=== PATIENT | male | born 1990 | race Caucasian/White ===

== ENCOUNTER 2017-05-13 20:03 | Emergency (ER) | payer OTHER ==
[~2017-05-13] VITALS: Ht 190.5 cm; Wt 77.1 kg
[~2017-05-13 20:03] MED LIST: TRAMADOL HCL50 MG PO
== END 2017-05-13 20:20 | disposition home or self-care (01) ==
LOC: ED 20:03
DX: L55.9 Sunburn, unspecified (principal); R03.0 Elevated blood-pressure reading, without diagnosis of hypertension; F17.200 Nicotine dependence, unspecified, uncomplicated

== ENCOUNTER 2018-03-29 23:17 | Emergency (ER) | payer OTHER ==
[~2018-03-29] VITALS: Ht 187.9 cm; Wt 81.6 kg
[2018-03-29 23:38] LABS: HEMATOCRIT 40.7 % (42.0-52.0); HEMOGLOBIN 13.8 g/dl (14.0-18.0); MEAN CELL VOLUME 94.2 fl (80.0-94.0); MEAN CORPUSCULAR HGB 31.9 pg (27.0-31.0); MEAN CORPUSCULAR HGB CONC 33.9 g/dl (33.0-37.0); PLATELET COUNT AUTOMATED 288 10*3/uL (130-400); RED BLOOD COUNT 4.32 10*6/uL (4.50-5.90); WHITE BLOOD COUNT 10.7 10*3/uL (4.8-10.8)
[2018-03-29 23:55] LABS: ALBUMIN 4.3 gm/dl (3.1-4.5); ALKALINE PHOSPHATASE 75 U/L (45-117); BUN 12 mg/dl (7-24); CHLORIDE 106 mmol/L (98-107); CREATININE 1.02 mg/dL (0.70-1.30); POTASSIUM 3.1 mmol/L (3.5-5.1); SGOT/AST 12 IU/L (3-35); SGPT/ALT 15 U/L (12-78); SODIUM 141 mmol/L (136-145); TOTAL PROTEIN 7.5 gm/dL (6.4-8.2)
[2018-03-29 23:56] LABS: TROPONIN I < 0.015 ng/ml (<0.045)
[2018-03-29 23:59] LABS: BASOPHILS 1 % (0-1); PLATELET SUFFICIENCY NORMAL (NORMAL); TOTAL CELLS COUNTED 100 #CELLS
[2018-03-30 00:31] LABS: URINE AMPHETAMINES < 1000 (1000ng/ml); URINE BARBITURATES < 200 (200ng/ml); URINE BENZODIAZEPINES < 200 (200ng/ml); URINE CANNABINOIDS (THC) > 50 (50ng/ml); URINE COCAINE < 300 (300ng/ml); URINE METHADONE < 300 (300ng/ml); URINE OPIATES < 300 (300ng/ml)
[2018-03-30 00:34] LABS: URINE PHENCYCLIDINE < 25 (25ng/ml)
[2018-03-30] MEDS ORDERED: K-TAB20 MEQ PO (00:53)
== END 2018-03-30 01:02 | disposition home or self-care (01) ==
LOC: ED 23:17
PROVIDERS: Physician Assistant
DX: R07.89 Other chest pain (principal); T43.615A Adverse effect of caffeine, initial encounter; F12.10 Cannabis abuse, uncomplicated; R25.1 Tremor, unspecified; Y92.9 Unspecified place or not applicable

== ENCOUNTER 2019-05-04 01:07 | Emergency (ER) | payer SELFPAY ==
[~2019-05-04] VITALS: Ht 190.5 cm; Wt 77.1 kg
[~2019-05-04 01:07] MED LIST changes: +ANTIBIOTIC28.4 GM T; +AUGMENTIN 875-875 MG PO; +K-TAB20 MEQ PO
[2019-05-04] MEDS ORDERED: CLINDAMYCIN HC300 MG PO (01:36)
== END 2019-05-04 01:56 | disposition home or self-care (01) ==
LOC: ED 01:07
DX: L01.00 Impetigo, unspecified (principal); R59.0 Localized enlarged lymph nodes; F17.200 Nicotine dependence, unspecified, uncomplicated; Z79.899 Other long term (current) drug therapy; Z79.2 Long term (current) use of antibiotics

== ENCOUNTER 2019-07-24 20:52 | Emergency (ER) | payer SELFPAY ==
[~2019-07-24] VITALS: Ht 190.5 cm; Wt 77.1 kg
[~2019-07-24 20:52] MED LIST changes: +CLINDAMYCIN HC300 MG PO
== END 2019-07-24 21:52 | disposition home or self-care (01) ==
LOC: ED 20:52
DX: T15.12XA Foreign body in conjunctival sac, left eye, initial encounter (principal); F17.200 Nicotine dependence, unspecified, uncomplicated; W22.8XXA Striking against or struck by other objects, initial encounter; Y93.89 Activity, other specified; Y92.89 Other specified places as the place of occurrence of the external cause; Y99.8 Other external cause status

== ENCOUNTER 2021-12-21 07:13 | Emergency (ER) | payer SELFPAY ==
[~2021-12-21] VITALS: Ht 187.9 cm; Wt 81.6 kg
== END 2021-12-21 09:45 | disposition home or self-care (01) ==
LOC: ED 07:13
DX: S93.401A Sprain of unspecified ligament of right ankle, initial encounter (principal); W10.8XXA Fall (on) (from) other stairs and steps, initial encounter; Y93.89 Activity, other specified; Y92.89 Other specified places as the place of occurrence of the external cause; Y99.8 Other external cause status

== ENCOUNTER 2022-06-29 16:00 | Emergency (ER) | payer SELFPAY ==
[~2022-06-29] VITALS: Ht 187.9 cm; Wt 81.6 kg
== END 2022-06-29 17:30 | disposition left against medical advice (07) ==
LOC: ED 16:00
DX: J02.9 Acute pharyngitis, unspecified (principal); Z53.21 Procedure and treatment not carried out due to patient leaving prior to being seen by health care provider

== ENCOUNTER 2022-08-02 21:33 | Emergency (ER) | payer SELFPAY | END 2022-08-02 23:21 | disposition left against medical advice (07) | LOC: ED 21:33 | DX: K08.89 Other specified disorders of teeth and supporting structures (principal); Z53.21 Procedure and treatment not carried out due to patient leaving prior to being seen by health care provider ==

== ENCOUNTER 2023-05-16 17:32 | Emergency (ER) | payer SELFPAY ==
[~2023-05-16] VITALS: Wt 77.1 kg
[2023-05-16 18:40] LABS: BASO # 0.1 10*3/uL (0.0-0.1); BASO % 0.7 % (0.0-1.0); EOS # 0.2 10*3/uL (0.0-0.4); EOS % 2.7 % (1.0-4.0); HEMATOCRIT 37.8 % (42.0-52.0); LYMPH # 2.6 10*3/uL (1.3-4.4); LYMPH % 35.3 % (27.0-41.0); MEAN CORPUSCULAR HGB 31.7 pg (27.0-31.0); MEAN CORPUSCULAR HGB CONC 33.3 g/dl (33.0-37.0); MONO # 0.8 10*3/uL (0.1-1.0); MONO % 10.6 % (3.0-9.0); NEUT # 3.8 10*3/uL (2.3-7.9); NEUT % 50.6 % (47.0-73.0); PLATELET COUNT AUTOMATED 334 10*3/uL (130-400); RED BLOOD COUNT 3.98 10*6/uL (4.50-5.90); RED CELL DISTRI WIDTH 13.2 % (0-14.5); WHITE BLOOD COUNT 7.4 10*3/uL (4.8-10.8)
[2023-05-16 19:05] LABS: ALKALINE PHOSPHATASE 91 U/L (46-116); BUN 12 mg/dl (9-23); CHLORIDE 104 mmol/L (98-107); POTASSIUM 4.1 mmol/L (3.4-5.1); SGPT/ALT 21 U/L (10-49); TOTAL PROTEIN 7.1 gm/dL (6.0-8.0)
[2023-05-16] MEDS ORDERED: SEPTDS PO (19:46)
[2023-05-16] MEDS ORDERED: CEPHALEXIN500 M1 PO (19:46)
== END 2023-05-16 19:49 | disposition home or self-care (01) ==
LOC: ED 17:32
PROVIDERS: Physician Assistant Medical
DX: L08.9 Local infection of the skin and subcutaneous tissue, unspecified (principal); Z87.891 Personal history of nicotine dependence